=== PATIENT | male | born 1965 | race Hispanic/Latino ===

== ENCOUNTER 2019-08-05 16:13 | Emergency (ER) | payer BC, OTHER ==
[2019-08-05] MEDS ORDERED: Bacitracin Zinc Ointment 30 gm TUBE ONE (16:59)
[2019-08-05] MEDS ORDERED: Cephalexin 250 MG CAP ONE (17:00)
[2019-08-05] MEDS ORDERED: Bacitracin 1 PK ONE (17:02)
== END 2019-08-05 17:07 | disposition home or self-care (01) ==
LOC: BURERS 16:13
DX: S51.811A Laceration without foreign body of right forearm, initial encounter (principal); E78.00 Pure hypercholesterolemia, unspecified; E78.5 Hyperlipidemia, unspecified; W26.0XXA Contact with knife, initial encounter
CPT/HCPCS: 12002